=== PATIENT | male | born 1975 | race Caucasian/White ===

== ENCOUNTER 2020-01-23 16:54 | Emergency (ER) | payer OTHER ==
[~2020-01-23] VITALS: Ht 190.5 cm; Wt 92.9 kg
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
[2020-01-23 18:48] VITALS: BP 129/84
== END 2020-01-23 18:48 | disposition home or self-care (01) ==
LOC: EDUNIT# 16:54 → ER 16:56
DX: M70.21 Olecranon bursitis, right elbow (principal); F17.210 Nicotine dependence, cigarettes, uncomplicated; Y09 Assault by unspecified means

== ENCOUNTER 2021-10-22 23:46 | Emergency (ER) | payer OTHER ==
[~2021-10-22] VITALS: Ht 190.5 cm; Wt 97.9 kg
[2021-10-23 00:23] LABS: BILIRUBIN,URINE NEGATIVE (NEGATIVE); CLARITY,URINE CLEAR; COLOR,URINE YELLOW; GLUCOSE, URINE (UA) NEGATIVE (NEGATIVE); KETONES,URINE TRACE (NEGATIVE); LEUKOCYTE ESTERASE ,URINE TRACE (NEGATIVE); NITRITE,URINE POSITIVE (NEGATIVE); PROTEIN,URINE NEGATIVE (NEGATIVE)
[2021-10-23 00:31] LABS: BACTERIA,URINE TRACE /HPF; HYALINE CASTS, URINE RARE /LPF; RBC,URINE RARE /HPF; SQUAMOUS EPITHELIAL CELL,UR RARE /HPF; WBC,URINE RARE /HPF
[2021-10-23 00:39] LABS: BASOPHILS % (AUTO) 1 % (0-10); EOSINOPHILS % (AUTO) 0 % (0-10); HEMATOCRIT 42 % (40-54); LYMPHOCYTES # (AUTO) 0.7 10^3/uL (1.0-4.0); LYMPHOCYTES % (AUTO) 10 % (12-44); MEAN CORPUSCULAR HEMOGLOBIN 28 pg (25-34); MEAN CORPUSCULAR HGB CONC 34 g/dL (32-36); MEAN CORPUSCULAR VOLUME 85 fL (80-99); MEAN PLATELET VOLUME 10.5 fL (9.0-12.2); MONOCYTES # (AUTO) 1.1 10^3/uL (0.0-1.0); MONOCYTES % (AUTO) 16 % (0-12); NEUTROPHILS # (AUTO) 4.8 10^3/uL (1.8-7.8); NEUTROPHILS % (AUTO) 73 % (42-75); PLATELET COUNT 221 10^3/uL (130-400); WHITE BLOOD COUNT 6.7 10^3/uL (4.3-11.0)
[2021-10-23 01:00] LABS: ALBUMIN 4.2 GM/DL (3.2-4.5); POTASSIUM 3.5 MMOL/L (3.6-5.0)
[2021-10-23] MEDS ORDERED: LACTATED RINGERS 1,000 ML IV ONE (01:00)
[2021-10-23 01:02] LABS: CALCIUM 8.8 MG/DL (8.5-10.1)
[2021-10-23 01:05] LABS: BILIRUBIN,TOTAL 0.3 MG/DL (0.1-1.0)
[2021-10-23 01:06] LABS: CREATININE SERUM 1.3 MG/DL (0.60-1.30)
[2021-10-23 01:09] LABS: MAGNESIUM 1.6 MG/DL (1.6-2.4)
[2021-10-23] MEDS ORDERED: KETOROLAC 30 MG/ML VIAL IVP ONE (01:45)
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
[2021-10-23 01:56] VITALS: BP 131/85
== END 2021-10-23 02:14 | disposition home or self-care (01) ==
LOC: EDUNIT# 23:46 → ER 23:50
DX: U07.1 COVID-19 (principal); Z87.891 Personal history of nicotine dependence
CPT/HCPCS: 36415; 80053; 81000; 83735; 85025; 87088; 87636

== ENCOUNTER 2021-12-28 22:08 | Emergency (ER) | payer OTHER ==
--- NOTE | 2021-12-28 22:20 | ED EENT ---
History of Present Illness General Chief Complaint: Dental Problems/Pain Stated Complaint: DENTAL PAIN,FRACTURED TOOTH Source: patient Exam Limitations: no limitations History of Present Illness Date Seen by Provider: Dec 28, 2021 Time Seen by Provider: 22:17 Initial Comments Patient reports that about a month ago he broke a tooth. Was seen at the dentist a few weeks ago for a cleaning. Is scheduled to have the tooth pulled on the . Has had increasing pain to the area today. Is concerned that it is infected. Has tried over the counter medications with mild improvement of symptoms. Denies fever or trouble swallowing. Timing/Duration: gradual Severity: moderate Location: mouth, dental Prearrival Treatment: over the counter meds Associated Symptoms: No drooling, No ear drainage, No facial pain/swelling; tooth pain Allergies and Home Medications Allergies Coded Allergies: erythromycin base (Verified Adverse Reaction, Mild, Nausea, 11/13/21) Patient Home Medication List Home Medication List Reviewed: Yes Amoxicillin/Potassium Clav (Amox Tr-K Clv 875-125 mg Tab) 875 Mg-125 Mg Tablet, 1 EACH PO BID Prescribed by: Kassie De La Torre on 12/28/212223 Hydrocodone Bit/Acetaminophen (HYDROcodone/APAP 5 MG/325 MG TAB) 1 Tab Tab, 1 TAB PO Q6H Prescribed by: Kassie De La Torre on 12/28/212223 Review of Systems Review of Systems Constitutional: No dizziness, No fever Eyes: No Symptoms Reported Ears: No Symptoms Reported Nose: no symptoms reported Mouth: pain, swelling, previous injury Throat: denies neck stiffness, denies hoarse, denies painful swallowing, denies difficulty with fluids Respiratory: no symptoms reported Cardiovascular: no symptoms reported Skin: no symptoms reported All Other Systems Reviewed Negative Unless Noted: Yes Past Lhsypmy-Cwzduu-Nyohbc Hx Patient Social History Tobacco Use?: Yes Tobacco type used: Cigarettes Smoking Status: Current Everyday Smoker Use of E-Cig and/or Vaping dev: No Substance use?: No Alcohol Use?: No Pt feels they are or have been: No Immunizations Up To Date Tetanus Booster (TDap): Unknown PED Vaccines UTD: Yes Influenza Vaccine Up-to-Date: No; Not Current Seasonal Allergies Seasonal Allergies: No Past Medical History Surgeries: Yes Orthopedic, Tonsillectomy Respiratory: No Cardiac: No Neurological: No Genitourinary: No Gastrointestinal: No Musculoskeletal: No Endocrine: No HEENT: No Cancer: No Psychosocial: No Integumentary: No Blood Disorders: No Family Medical History Reviewed Nursing Family Hx Physical Exam Vital Signs Vital Signs - First Documented 12/28/21 22:17 Temp 36.0 Pulse 79 Resp 20 B/P (MAP) 166/106 (126) Pulse Ox 99 O2 Delivery Room Air Height, Weight, BMI Height: '" Weight: lbs. oz. kg; 26.00 BMI Method: General Appearance: WD/WN, no apparent distress Eyes: bilateral eye normal inspection, bilateral eye PERRL Nose: normal inspection Mouth/Throat: pharynx normal, dental tenderness (right lower tooth); No excessive drooling, No mandibular swelling, No maxillary swelling, No pharynx swelling, No tongue swollen, No tonsillar swelling, No trismus, No uvula swelling, No voice changes Neck: non-tender, full range of motion, supple, normal inspection Neurologic/Psychiatric: alert, normal mood/affect, oriented x 3 Skin: normal color, warm/dry Progress/Results/Core Measures Results/Orders My Orders Orders - KASSIE DE LA TORRE APRN Hydrocodone/Apap 5/325 Tablet (Lortab 5 (12/28/21 22:30) Amoxicillin/Clavulanate Tablet (Augmenti (12/28/21 22:30) Vital Signs/I&O 12/28/21 22:17 Temp 36.0 Pulse 79 Resp 20 B/P (MAP) 166/106 (126) Pulse Ox 99 O2 Delivery Room Air Progress Progress Note : Progress Note Patient presents to the emergency department for dental pain with known fractured tooth that is scheduled to be pulled on the . Will start on antibiotics and pain medication. Instructed to take the narcotic as needed for pain. If it is not needed then he does not need to take. Reasons to return to the ER were discussed. Importance on following up with dentist as planned. Departure Impression Primary Impression: Dental abscess Disposition: HOME, SELF-CARE Condition: Stable Departure-Patient Inst. Decision time for Depature: 22:21 Referrals: NO,LOCAL PHYSICIAN (PCP/Family) Primary Care Physician Patient Instructions: Dental Pain (DC) Add. Discharge Instructions: 1. Home and rest. 2. Push fluids. 3. Alternate Tylenol/Ibuprofen as needed for pain. 4. Follow up with PCP as needed. 5. Follow up with Dentist as soon as possible. 6. Start Augmentin and take as directed until finished. 7. Hydrocodone as needed for severe pain. This medication can cause constipation so consider taking a stool softner while on this medication. No driving while taking this medication. 8. Return here if worse or concerns. All discharge instructions reviewed with patient and/or family. Voiced understanding. Scripts Amoxicillin/Potassium Clav (Amox Tr-K Clv 875-125 mg Tab) 875 Mg-125 Mg Tablet 1 EACH PO BID for 7 Days, #14 TAB Prov: KASSIE DE LA TORRE APRN 12/28/21 Hydrocodone Bit/Acetaminophen (HYDROcodone/APAP 5 MG/325 MG TAB) 1 Tab Tab 1 TAB PO Q6H for Pain, #8 TAB 0 Refills Prov: KASSIE DE LA TORRE APRN 12/28/21 KASSIE DE LA TORRE APRN Dec 28, 2021 22:20
[2021-12-28] MEDS ORDERED: ACHD5005 PO (22:24)
[2021-12-28] MEDS ORDERED: AMOX1TAB12 PO (22:24)
[2021-12-28 22:27] VITALS: BP 166/106
[2021-12-28] MEDS ORDERED: AUGMENTIN 875 MG TAB (AMOXICILLIN/CLAVULANATE) PO SCH (22:30)
[2021-12-28] MEDS ORDERED: HYDROcodone/APAP 5 MG/325 MG (LORTAB) TAB PO ONE (22:30)
== END 2021-12-28 22:30 | disposition home or self-care (01) ==
LOC: EDUNIT# 22:08 → ER 22:10
DX: K04.7 Periapical abscess without sinus (principal); K03.81 Cracked tooth; F17.210 Nicotine dependence, cigarettes, uncomplicated
CPT/HCPCS: 99283